=== PATIENT | male | born 2000 | race Caucasian/White ===

== ENCOUNTER 2022-11-12 19:44 | Emergency (ER) | payer OTHER ==
[~2022-11-12] VITALS: Ht 177.8 cm; Wt 80.0 kg
[2022-11-12 20:04] VITALS: BP 139/73; TEMP 98; O2SAT 99
[2022-11-12 21:15] VITALS: O2SAT 99
== END 2022-11-12 21:24 | disposition home or self-care (01) ==
LOC: M ED 19:44 → EDBD 19:44 → M ED 21:24
DX: M54.2 Cervicalgia (principal); V49.10XA Passenger injured in collision with unspecified motor vehicles in nontraffic accident, initial encounter